=== PATIENT | male | born 1965 | race Caucasian/White ===

== ENCOUNTER 2016-11-03 12:43 | Emergency (ER) | payer OTHER ==
[2016-11-03] MEDS ORDERED: NAPROXEN 250 MG TAB As Ordered ONE (14:04)
--- NOTE | 2016-11-03 14:19 | REP ---
CT Head without contrast HISTORY: Trauma COMPARISON: None There is no intraparenchymal hemorrhage, acute infarct, mass or midline shift. The ventricular system is normal in appearance. There is no extra cerebral collection. There is no fracture. The visualized sinuses are clear. IMPRESSION: There is no intracranial lesion. Signed by Hilario Vasques MD 11/03/2016 02:11 P
--- NOTE | 2016-11-03 14:33 | EDDOCDS ---
Nurse's Notes [facility] Name: John Gibson Age: 51 yrs Sex: Male : 1965 Arrival Date: 11/03/2016 Time: 12:43 Bed PR Private MD: NO PRIMARY PHYSICIAN, . Diagnosis: Headache;Low back pain-chronic Presentation: 11/03 12:49 Presenting complaint: Patient states: headache for 6 days. today while at [employer] [facility] developed a nose bleed. also legs go numb when picks things up ( symptoms for 1 year). headache feels different today - I can actually feel the Headache move through my head. my neck crunches all the time - chronic. This patient has no additional risk factors. Adult Sepsis Screening: The patient does not have new or worsening altered mentation. Patient's respiratory rate is less than 22. Systolic blood pressure is greater than 100. Patient has a qSOFA score of 0- Negative Sepsis Screen. Suicide/Homicide risk assessment- the patient denies having any suicidal and/or homicidal ideations and does not present with any other emotional, behavioral or mental health complaints. Status: Patient is not a care services manager or dependent. Transition of care: patient was not received from another setting of care. 12:49 Acuity: LEAH Level 3 srm 12:49 Method Of Arrival: Walkin/Carried/Asstd srm Triage Assessment: 12:51 Headache History: A change in the character of the headache the patient is experiencing srm has occured. General: Appears in no apparent distress, Behavior is appropriate for age, cooperative. Pain: Pain currently is 6 out of 10 on a pain scale. Pain began 6 days ago Also complains of no other associated symptoms. HIV screening NA for this visit Offered previously. Neurological: Level of Consciousness is awake, Oriented to person, place, time, Gait is steady, Speech is normal. Historical: - Allergies: no known allergies; - Home Meds: 1. none - PMHx: headaches; back and neck pain; - PSHx: right lung surgery for a growth; - Social history: Smoking status: Patient states former smoker of tobacco. No barriers to communication noted, The patient speaks fluent Vincentian, Speaks appropriately for age. - Family history: Not pertinent. - : The pt / caregiver states he / she is not on anticoagulants. Home medication list is obtained from the patient. - Exposure Risk Screening:: None identified. Screenin:31 Screening information is obtained from the patient. Fall risk: No risks identified. kr3 Assistance ADL's: requires no assistance with activities of daily living. Abuse/DV Screen: The patient / caregiver reports he/she is: not in a situation that causes fear, pain or injury. Nutritional screening: No deficits noted. Advance Directives: Currently, there is no health care proxy. home support is adequate. Assessment: 14:32 Pain: Location: back. Neurological: Reports headache. Respiratory: Respiratory effort kr3 is even, unlabored. Vital Signs: 12:44 BP 112 / 78; Pulse 87; Resp 18; Temp 98.6(O); Pulse Ox 99% on R/A; Weight 52.16 kg (R); ct3 Height 5 ft. 7 in. (170.18 cm) (R); Pain 7/10; 14:28 BP 133 / 78; Pulse 64; Resp 18; Temp 99.3(TE); Pulse Ox 98% on R/A; Pain 7/10; ar3 12:44 Body Mass Index 18.01 (52.16 kg, 170.18 cm) ct3 Vitals: 12:44 Log In Time: November 03, 2016 at 12:41. ct3 ED Course: 12:43 Patient visited by Gracia Holley PCA. ct3 12:43 Patient moved to Waiting ct3 12:44 NO PRIMARY PHYSICIAN, . is Private Physician. ct3 12:46 Patient moved to Pre RCE ct3 12:50 Triage Initiated srm 13:24 Kacie Pastrana,RN is Primary Nurse. kr3 13:24 Delia Cabrales,CONNIE is Primary Nurse. kr3 13:24 Patient moved to Triage 1 kr3 13:50 [facility] cc10 13:50 Josh Cosme MD is Attending Physician. cc10 13:50 Patient visited by Anam Dey PA-C. cc10 13:50 Patient visited by Anam Dey PA-C. cc10 14:05 Patient moved to TR3 kr3 14:23 [facility] is Referral Physician. cc10 14:26 Patient moved to PR2 / 26 kr3 14:26 Patient moved to PR1 / 25 ar3 14:29 Patient visited by Denice Ortiz, JONAH. ar3 14:31 No IV's were initiated during this patient's visit. No procedures done that require kr3 assistance. 14:32 The patient / caregiver is instructed regarding the plan of care and ED course. Patient leticia has correct armband on for positive identification. Administered Medications: 14:05 Drug: Naproxen 500 mg [naproxen 250 mg tablet (2 tabs)] Route: PO; kr3 14:30 Follow up: Response: No significant change. kr3 Order Results: There are currently no results for this order. Outcome: 14:23 Discharge ordered by Provider. cc10 14:31 Discharge Assessment: patient administered narcotics - no. The following High Risk kr3 Discharge criteria are identified: None. Discharged to home ambulatory. Condition: stable. Discharge instructions given to patient, Instructed on discharge instructions, follow up and referral plans. medication usage, Demonstrated understanding of instructions, medications, Pt was receptive of discharge instructions/ teaching. Prescriptions given X 1. CT Study completed. Property sent home with patient. 14:32 Patient left the ED. kr3 Signatures: Cassie Rod, RN RN srm Delia CabralesRN CONNIE kr3 Denice Ortiz, PAPER MACHINE BACK TENDER PAPER MACHINE BACK TENDER ar3 Gracia Holley, PAPER MACHINE BACK TENDER PAPER MACHINE BACK TENDER ct3 Anam Dey PA-C PA-C cc10 MTDD
--- NOTE | 2016-11-03 14:33 | EDDOCDS ---
Physician Documentation [facility] Name: John Gibson Age: 51 yrs Sex: Male : 1965 Arrival Date: 11/03/2016 Time: 12:43 Bed PR Private MD: NO PRIMARY PHYSICIAN, . Disposition: 11/03/16 14:23 Discharged to Home/Self Care. Impression: Headache, Low back pain - chronic. - Condition is Stable. - Discharge Instructions: Chronic Back Pain, Sinus Headache, [id number]-Jyyp. - Prescriptions for Naprosyn 500 mg Oral Tablet - take 1 tablet by ORAL route 2 times per day take with food; 30 tablet. Prednisone 20 mg Oral Tablet - take 1 tablet by ORAL route once daily for 5 days; 5 tablet. - Medication Reconciliation form. - [facility]; When: Call to arrange an appointment; Reason: To establish care. - Problem is chronic. - Symptoms are unchanged. Historical: - Allergies: no known allergies; - Home Meds: 1. none - PMHx: headaches; back and neck pain; - PSHx: right lung surgery for a growth; - Social history: Smoking status: Patient states former smoker of tobacco. No barriers to communication noted, The patient speaks fluent Nicaraguan, Speaks appropriately for age. - Family history: Not pertinent. - : The pt / caregiver states he / she is not on anticoagulants. Home medication list is obtained from the patient. - Exposure Risk Screening:: None identified. Vital Signs: 11/03 12:44 BP 112 / 78; Pulse 87; Resp 18; Temp 98.6(O); Pulse Ox 99% on R/A; Weight 52.16 kg / ct3 114.99 lbs (R); Height 5 ft. 7 in. (170.18 cm) (R); Pain 7/10; 14:28 BP 133 / 78; Pulse 64; Resp 18; Temp 99.3(TE); Pulse Ox 98% on R/A; Pain 7/10; ar3 12:44 Body Mass Index 18.01 (52.16 kg, 170.18 cm) ct3 MDM: 14:01 Naproxen 500 mg PO once; administer with food or milk ordered. cc10 14:02 CT Head Without Contrast Ordered. EDMS Administered Medications: 14:05 Drug: Naproxen 500 mg [naproxen 250 mg tablet (2 tabs)] Route: PO; kr3 14:30 Follow up: Response: No significant change. kr3 Signatures: Dispatcher [employer] Cassie Ceballos RN Delia Cardona RN RN kr3 Anam Dey, MORENO PAAnthony cc10 MTDD
--- NOTE | 2016-11-05 15:33 | EDDOCDS ---
Nurse's Notes [facility] Name: John Gibson Age: 51 yrs Sex: Male : 1965 Arrival Date: 11/03/2016 Time: 12:43 Bed PR Private MD: NO PRIMARY PHYSICIAN, . Diagnosis: Headache;Low back pain-chronic Presentation: 11/03 12:49 Presenting complaint: Patient states: headache for 6 days. today while at [employer] [facility] developed a nose bleed. also legs go numb when picks things up ( symptoms for 1 year). headache feels different today - I can actually feel the Headache move through my head. my neck crunches all the time - chronic. This patient has no additional risk factors. Adult Sepsis Screening: The patient does not have new or worsening altered mentation. Patient's respiratory rate is less than 22. Systolic blood pressure is greater than 100. Patient has a qSOFA score of 0- Negative Sepsis Screen. Suicide/Homicide risk assessment- the patient denies having any suicidal and/or homicidal ideations and does not present with any other emotional, behavioral or mental health complaints. Status: Patient is not a rn patient services or dependent. Transition of care: patient was not received from another setting of care. 12:49 Acuity: LEAH Level 3 srm 12:49 Method Of Arrival: Walkin/Carried/Asstd srm Triage Assessment: 12:51 Headache History: A change in the character of the headache the patient is experiencing srm has occured. General: Appears in no apparent distress, Behavior is appropriate for age, cooperative. Pain: Pain currently is 6 out of 10 on a pain scale. Pain began 6 days ago Also complains of no other associated symptoms. HIV screening NA for this visit Offered previously. Neurological: Level of Consciousness is awake, Oriented to person, place, time, Gait is steady, Speech is normal. Historical: - Allergies: no known allergies; - Home Meds: 1. none - PMHx: headaches; back and neck pain; - PSHx: right lung surgery for a growth; - Social history: Smoking status: Patient states former smoker of tobacco. No barriers to communication noted, The patient speaks fluent Andorran, Speaks appropriately for age. - Family history: Not pertinent. - : The pt / caregiver states he / she is not on anticoagulants. Home medication list is obtained from the patient. - Exposure Risk Screening:: None identified. Screenin:31 Screening information is obtained from the patient. Fall risk: No risks identified. kr3 Assistance ADL's: requires no assistance with activities of daily living. Abuse/DV Screen: The patient / caregiver reports he/she is: not in a situation that causes fear, pain or injury. Nutritional screening: No deficits noted. Advance Directives: Currently, there is no health care proxy. home support is adequate. Assessment: 14:32 Pain: Location: back. Neurological: Reports headache. Respiratory: Respiratory effort kr3 is even, unlabored. Vital Signs: 12:44 BP 112 / 78; Pulse 87; Resp 18; Temp 98.6(O); Pulse Ox 99% on R/A; Weight 52.16 kg (R); ct3 Height 5 ft. 7 in. (170.18 cm) (R); Pain 7/10; 14:28 BP 133 / 78; Pulse 64; Resp 18; Temp 99.3(TE); Pulse Ox 98% on R/A; Pain 7/10; ar3 12:44 Body Mass Index 18.01 (52.16 kg, 170.18 cm) ct3 Vitals: 12:44 Log In Time: November 03, 2016 at 12:41. ct3 ED Course: 12:43 Patient visited by Gracia Holley PCA. ct3 12:43 Patient moved to Waiting ct3 12:44 NO PRIMARY PHYSICIAN, . is Private Physician. ct3 12:46 Patient moved to Pre RCE ct3 12:50 Triage Initiated srm 13:24 Kacie Pastrana,RN is Primary Nurse. kr3 13:24 Delia Cabrales,CONNIE is Primary Nurse. kr3 13:24 Patient moved to Triage 1 kr3 13:50 [facility] cc10 13:50 Josh Cosme MD is Attending Physician. cc10 13:50 Patient visited by Anam Dey PA-C. cc10 13:50 Patient visited by Anam Dey PA-C. cc10 14:05 Patient moved to TR3 kr3 14:23 [facility] is Referral Physician. cc10 14:26 Patient moved to PR2 / 26 kr3 14:26 Patient moved to PR1 / 25 ar3 14:29 Patient visited by Denice Ortiz PCA. ar3 14:31 No IV's were initiated during this patient's visit. No procedures done that require kr3 assistance. 14:32 The patient / caregiver is instructed regarding the plan of care and ED course. Patient leticia has correct armband on for positive identification. 14:34 [facility] Payment Agreement was scanned into [employer] and attached to record. jp5 14:37 CT Head Without Contrast Returned. EDMS 15:16 Patient name changed from John\S\\S\Arthur\S\ to John\S\Arturo\S\Arthur. EDMS 15:29 T-Sheet-- Draft Copy was scanned into [employer] and attached to record. gb Administered Medications: 14:05 Drug: Naproxen 500 mg [naproxen 250 mg tablet (2 tabs)] Route: PO; kr3 14:30 Follow up: Response: No significant change. kr3 Order Results: Radiology Order: CT Head Without Contrast Test: CT Head Without Contrast REASON FOR EXAMINATION: Trauma; CT Head without contrast; ; HISTORY: Trauma; ; COMPARISON: None; ; There is no intraparenchymal hemorrhage, acute infarct, mass or midline shift.; The ventricular system is normal in appearance. There is no extra cerebral; collection. There is no fracture. The visualized sinuses are clear.; ; IMPRESSION: There is no intracranial lesion.; ; ; ; ; Signed by; Hilario Vasques MD 11/03/2016 02:11 P; Outcome: 14:23 Discharge ordered by Provider. cc10 14:31 Discharge Assessment: patient administered narcotics - no. The following High Risk kr3 Discharge criteria are identified: None. Discharged to home ambulatory. Condition: stable. Discharge instructions given to patient, Instructed on discharge instructions, follow up and referral plans. medication usage, Demonstrated understanding of instructions, medications, Pt was receptive of discharge instructions/ teaching. Prescriptions given X 1. CT Study completed. Property sent home with patient. 14:32 Patient left the ED. kr3 Signatures: Dispatcher [employer] EDMS Cassie Rod RN RN [facility] Tovat, Taniya, Reg Reg Delia Cabrales RN RN kr3 Denice Ortiz, AGRICULTURAL LENDER AGRICULTURAL LENDER ar3 Gracia Holley, AGRICULTURAL LENDER AGRICULTURAL LENDER ct3 [place], Anam, PA-C PA-C cc10 Vee Pagan jp5 Chart Complete MTDD
--- NOTE | 2016-11-05 15:33 | EDDOCDS ---
Physician Documentation [facility] Name: John Gibson Age: 51 yrs Sex: Male : 1965 Arrival Date: 11/03/2016 Time: 12:43 Bed PR Private MD: NO PRIMARY PHYSICIAN, . Disposition: 11/03/16 14:23 Discharged to Home/Self Care. Impression: Headache, Low back pain - chronic. - Condition is Stable. - Discharge Instructions: Chronic Back Pain, Sinus Headache, [id number]. - Prescriptions for Naprosyn 500 mg Oral Tablet - take 1 tablet by ORAL route 2 times per day take with food; 30 tablet. Prednisone 20 mg Oral Tablet - take 1 tablet by ORAL route once daily for 5 days; 5 tablet. - Medication Reconciliation form. - Follow up: [facility]; When: Call to arrange an appointment; Reason: To establish care. - Problem is chronic. - Symptoms are unchanged. Historical: - Allergies: no known allergies; - Home Meds: 1. none - PMHx: headaches; back and neck pain; - PSHx: right lung surgery for a growth; - Social history: Smoking status: Patient states former smoker of tobacco. No barriers to communication noted, The patient speaks fluent Chilean, Speaks appropriately for age. - Family history: Not pertinent. - : The pt / caregiver states he / she is not on anticoagulants. Home medication list is obtained from the patient. - Exposure Risk Screening:: None identified. Vital Signs: 11/03 12:44 BP 112 / 78; Pulse 87; Resp 18; Temp 98.6(O); Pulse Ox 99% on R/A; Weight 52.16 kg / ct3 114.99 lbs (R); Height 5 ft. 7 in. (170.18 cm) (R); Pain 7/10; 14:28 BP 133 / 78; Pulse 64; Resp 18; Temp 99.3(TE); Pulse Ox 98% on R/A; Pain 7/10; ar3 12:44 Body Mass Index 18.01 (52.16 kg, 170.18 cm) ct3 MDM: 14:01 Naproxen 500 mg PO once; administer with food or milk ordered. cc10 14:02 CT Head Without Contrast Ordered. EDMS 14:34 [facility] Payment Agreement was scanned into [employer] and attached to record. jp5 14:34 Financial registration complete. jp5 15:29 T-Sheet-- Draft Copy was scanned into [employer] and attached to record. gb Administered Medications: 14:05 Drug: Naproxen 500 mg [naproxen 250 mg tablet (2 tabs)] Route: PO; kr3 14:30 Follow up: Response: No significant change. kr3 Signatures: Dispatcher [employer] EDMS Cassie Rod, RN RN srm Taniya Murillo, Reg Reg gb Delia Cabrales RN RN kr3 Anam Dey, PA-C PA-C cc10 Vee Pagan jp5 The chart was reviewed and I authenticate all verbal orders and agree with the evaluation and treatment provided.Attachments: 14:34 [facility] Payment Agreement jp5 15:29 T-Sheet-- Draft Copy gb Chart Complete MTDD
--- NOTE | 2016-11-05 15:33 | EDDOCDS ---
Physician Documentation [facility] Name: John Gibson Age: 51 yrs Sex: Male : 1965 Arrival Date: 11/03/2016 Time: 12:43 Bed PR Private MD: NO PRIMARY PHYSICIAN, . Disposition: 11/03/16 14:23 Discharged to Home/Self Care. Impression: Headache, Low back pain - chronic. - Condition is Stable. - Discharge Instructions: Chronic Back Pain, Sinus Headache, [id number]. - Prescriptions for Naprosyn 500 mg Oral Tablet - take 1 tablet by ORAL route 2 times per day take with food; 30 tablet. Prednisone 20 mg Oral Tablet - take 1 tablet by ORAL route once daily for 5 days; 5 tablet. - Medication Reconciliation form. - Follow up: [facility]; When: Call to arrange an appointment; Reason: To establish care. - Problem is chronic. - Symptoms are unchanged. Historical: - Allergies: no known allergies; - Home Meds: 1. none - PMHx: headaches; back and neck pain; - PSHx: right lung surgery for a growth; - Social history: Smoking status: Patient states former smoker of tobacco. No barriers to communication noted, The patient speaks fluent Cypriot, Speaks appropriately for age. - Family history: Not pertinent. - : The pt / caregiver states he / she is not on anticoagulants. Home medication list is obtained from the patient. - Exposure Risk Screening:: None identified. Vital Signs: 11/03 12:44 BP 112 / 78; Pulse 87; Resp 18; Temp 98.6(O); Pulse Ox 99% on R/A; Weight 52.16 kg / ct3 114.99 lbs (R); Height 5 ft. 7 in. (170.18 cm) (R); Pain 7/10; 14:28 BP 133 / 78; Pulse 64; Resp 18; Temp 99.3(TE); Pulse Ox 98% on R/A; Pain 7/10; ar3 12:44 Body Mass Index 18.01 (52.16 kg, 170.18 cm) ct3 MDM: 14:01 Naproxen 500 mg PO once; administer with food or milk ordered. cc10 14:02 CT Head Without Contrast Ordered. EDMS 14:34 [facility] Payment Agreement was scanned into [employer] and attached to record. jp5 14:34 Financial registration complete. jp5 15:29 T-Sheet-- Draft Copy was scanned into [employer] and attached to record. gb Administered Medications: 14:05 Drug: Naproxen 500 mg [naproxen 250 mg tablet (2 tabs)] Route: PO; kr3 14:30 Follow up: Response: No significant change. kr3 Signatures: Dispatcher [employer] EDMS Cassie Rod, RN RN srm Taniya Murillo, Reg Reg gb Delia Cabrales RN RN kr3 Anam Dey, PA-C PA-C cc10 Vee Pagan jp5 The chart was reviewed and I authenticate all verbal orders and agree with the evaluation and treatment provided.Attachments: 14:34 [facility] Payment Agreement jp5 15:29 T-Sheet-- Draft Copy gb Chart Complete MTDD
== END 2016-11-03 14:32 | disposition home or self-care (01) ==
LOC: M ED 12:43
DX: R51 Headache (principal); G89.29 Other chronic pain; M54.2 Cervicalgia; F17.210 Nicotine dependence, cigarettes, uncomplicated

== ENCOUNTER → 2016-11-30 | Outpatient (REF) | payer OTHER ==
[2016-11-30 19:22] LABS: FOLATE 23.6 NG/ML; VITAMIN B12 LEVEL 670 PG/ML
[2016-11-30 19:31] LABS: ALBUMIN 3.8 GM/DL (3.2-5.2); ALBUMIN/GLOBULIN RATIO 1.31 (1.00-1.93); ALKALINE PHOSPHATASE 88 U/L (45-117); ALT/SGPT 17 U/L (12-78); ANION GAP 12 MEQ/L (8-16); AST/SGOT 18 U/L (15-37); BILIRUBIN,TOTAL 0.3 MG/DL (0.2-1.0); BLOOD UREA NITROGEN 16 MG/DL (7-18); CARBON DIOXIDE LEVEL 23 MEQ/L (21-32); CHLORIDE LEVEL 110 MEQ/L (98-107); CHOLESTEROL LEVEL 174 MG/DL (<200); FREE T4 0.84 NG/DL (0.76-1.46); GLOMERULAR FILTRATION RATE > 60.0 (>56); GLUCOSE, FASTING 110 MG/DL (70-105); POTASSIUM SERUM 4.4 MEQ/L (3.5-5.1); SODIUM LEVEL 145 MEQ/L (136-145); TOTAL PROTEIN 6.7 GM/DL (6.4-8.2); TRIGLYCERIDES LEVEL 162 MG/DL (<150)
[2016-11-30 20:04] LABS: WHITE BLOOD COUNT 10.2 K/mm3 (4.0-10.0)
[2016-11-30 20:05] LABS: BASO % 0.4 % (0.0-1.0); EOS # 0.3 K/mm3 (0.0-0.50); EOS % 3.1 % (0.0-3.0); LARGE UNSTAINED CELL # 0.2 K/mm3 (0.0-0.4); LYMPH # 2.4 K/mm3 (1.5-4.5); LYMPH % 23.1 % (24.0-44.0); MEAN CORPUSCULAR HEMOGLOBIN 31.7 pg (27.0-33.0); MEAN CORPUSCULAR HGB CONC 33.8 g/dl (32.0-36.5); MEAN CORPUSCULAR VOLUME 93.9 fl (80.0-96.0); MONO # 0.7 K/mm3 (0.0-0.8); MONO % 6.5 % (0.0-5.0); NEUTROPHILS # 6.6 K/mm3 (1.8-7.7); NEUTROPHILS % 64.9 % (36.0-66.0); PLATELET COUNT, AUTOMATED 390 k/mm3 (150-450); RED CELL DISTRIBUTION WIDTH 12.4 % (11.5-14.5)
[2016-12-01 14:13] LABS: HIV SCRN NEGATIVE (NEGATIVE); HIV SCRN1 NEGATIVE (NEGATIVE)
[2016-12-01 14:14] LABS: CONTROL LINE INT CTR LINE PRESENT
== END ==
LOC: M SFHCCAPE 10:38
PROVIDERS: ATTEND Physician Assistant
DX: R06.02 Shortness of breath (principal); F32.0 Major depressive disorder, single episode, mild; Z11.59 Encounter for screening for other viral diseases; Z13.6 Encounter for screening for cardiovascular disorders; Z11.4 Encounter for screening for human immunodeficiency virus [HIV]; R07.9 Chest pain, unspecified; Z12.5 Encounter for screening for malignant neoplasm of prostate
CPT/HCPCS: 80053; 80061; 82306; 82607; 82746; 84439; 84443; 85025; 86803; 87806; G0103

== ENCOUNTER → 2016-12-03 | Outpatient (CLI) | payer OTHER ==
--- NOTE | 2016-12-03 19:40 | REP ---
CHEST, TWO VIEWS: HISTORY: Dyspnea. COMPARISON: 08/19/2014 The heart is not enlarged. There are chronic changes seen throughout the lung carmen, status quo. The lung carmen are hyperexpanded. No acute patchy parenchymal opacities or pleural effusions have developed. IMPRESSION: No plain radiographic evidence of acute disease or significant change from the prior exam. Signed by Addy Pineda DO 12/04/2016 11:44 A
== END ==
LOC: M RAD 18:47
PROVIDERS: ATTEND Physician Assistant
DX: R06.02 Shortness of breath (principal)

== ENCOUNTER → 2016-12-19 | Outpatient (CLI) | payer OTHER ==
--- NOTE | 2016-12-21 09:07 | REP ---
MR CERVICAL SPINE WITHOUT CONTRAST: HISTORY: Degenerative disc disease. COMPARISON: 04/19/2014. A disc bulge with associated osteophyte formation is present at the C5-6 level. There is mild effacement of the thecal sac without spinal cord compression. Bilateral uncinate process hypertrophy is present. This produces moderate and mild narrowing of the right and the left C5 neural foramina respectively . A disc bulge with associated osteophyte formation is present at the C6-7 level. There is minimal effacement of the thecal sac without spinal cord compression. Bilateral uncinate process hypertrophy is present. This produces moderate and mild narrowing the right and left C6 neural foramina respectively . There is no other disc bulge or herniation. The remaining neural foramina are patent. The spinal cord is normal in signal intensity. The C4-5 through C6-7 intervertebral discs are decreased in height consistent with disc degeneration. Normal signal intensity is present in the cervical vertebral bodies. IMPRESSION: There is cervical spondylosis at the C5-6 and C6-7 levels without spinal cord compression. There has been progression of the foraminal narrowing. Signed by Hilario Vasques MD 12/21/2016 09:19 A
--- NOTE | 2016-12-21 09:38 | REP ---
MR LUMBAR SPINE WITHOUT CONTRAST: HISTORY: Degenerative disc disease. COMPARISON: 04/19/2014. Decreased signal intensity on T2-weighted images is present in the L2-3 through L5-S1 intervertebral discs. The discs are decreased in height. These findings are consistent with disc degeneration. A disc bulge is present at the T12-L1 level. There is minimal effacement of the thecal sac without spinal cord compression. The T12 neural foramina are patient on sagittal images. A diffuse disc bulge is present at the L1-2 level. There is minimal compression o of the thecal sac. The L1 nerves exit the neural foramina without compression. A diffuse disc bulge and small right paracentral disc protrusion are present at the L2-3 level. There is hypertrophy of the ligamenta flava and posterior articulating facets. These findings produce minimal central canal stenosis. The L2 nerves exit the neural foramina without compression. A diffuse disc bulge is present at the L3-4 level. There is minimal compression of the thecal sac. There is hypertrophy of the posterior articulating facets. The L3 nerves exit the neural foramina without compression. A diffuse disc bulge and small disc extrusion central and eccentric to the left are present at the L4-5 level. There is inferior migration of disc material. There is minimal compression of the thecal sac and left L5 nerve as it exits the thecal sac and in the left L5 lateral recess. There is compression of the right L4 nerve in the neural foramen. The left L4 nerve exits the neural foramen without compression. A diffuse disc bulge is present in at the L5-S1 level. There is no thecal sac compression. The disc bulge abuts the S1 nerves. There is hypertrophy of the posterior articulating facets. The L5 nerve exits the neural foramina without compression. There is partial sacralization of the L5 vertebral body. The conus medullaris is normal in appearance terminating at the level of the T12-L1 intervertebral disc. Increased signal intensity on T2-weighted images is present in the endplates of the L2 through L4 vertebral bodies. This represents degenerative. IMPRESSION: 1. Diffuse disc bulge at the L1-2 level with minimal thecal sac compression. The disc bulge is a new finding. 2. Minimal central canal stenosis at the L2-3 level secondary to disc bulge, disc protrusion, ligamentous and facet hypertrophy. The disc protrusion is a new findings. 3. Diffuse disc bulge at the L3-4 level with minimal thecal sac compression. 4. Diffuse disc bulge and small disc extrusion at the L4-5 level with minimal compression of the thecal sac and left L5 nerve as it exits the thecal sac and in the left L5 lateral recess. 5. Diffuse disc bulge at the L5-S1 level. This abuts the S1 nerves. The disc bulge is a new finding. Signed by Hilario Vasques MD 12/21/2016 09:49 A
== END ==
LOC: M RAD 08:57
PROVIDERS: ATTEND Physician Assistant
DX: M54.5 Low back pain (principal)

== ENCOUNTER → 2017-01-22 | Outpatient (CLI) | payer OTHER ==
--- NOTE | 2017-02-03 00:38 | ECWPNPC ---
PATIENT NAME: YAMILA MAHARAJ : 1965 GENDER: MALE VISIT DATE: 01/22/2017 DISCHARGE DATE: 01/22/17 1451 VISIT LOCKED DATE TIME: PHYSICIAN: KELTON WU RESOURCE: KELTON WU REASON FOR APPOINTMENT 1. NECK/BACK HISTORY OF PRESENT ILLNESS NEW PATIENT CONSULT: WHEN DID YOUR PAIN FIRST START? . BRIEFLY DESCRIBE HOW YOUR PAIN STARTED? . HOW DOES YOUR PAIN CHANGE WITH TIME? . DOES YOUR PAIN AWAKEN YOU FROM SLEEP? . HOW MANY HOURS OF SLEEP DO YOU NORMALLY GET? . ANY DIAGNOSTIC TESTING? . FACILITY WHERE TESTS WERE DONE? ____. PAIN TREATMENT TREATMENT YES CANCER HAVE YOU EVER HAD ANY TYPE OF CANCER?NO NO. 51 YEAR OLD MALE PATIENT WITH HISTORY OF CHRONIC NECK AND BACK PAIN. PATIENT DESCRIBES THE PAIN ACHING, STABBING, AND HAVING IT ALL THE TIME WITH A PAIN SCORE OF 6/10 ON TODAY'S VISIT. PATIENT REPORTS THAT HIS PAIN STARTED 25 YEARS AGO WHEN A BOX OF ALUMINUM FELL ON HIM. PATIENT REPORTS THAT HE SUFFERS FROM DEPRESSION. PATIENT STATES THAT ANY MOVEMENT OF THE NECK HURTS. PATIENT REPORTS THAT HIS RIGHT LEG GOES NUMB. PATIENT REPORTS THAT HE IS NOT INTERESTED IN INJECTIONS AT THIS TIME. PATIENT REPORTS THAT HE HAS SEEN SOMEONE IN THE ORTHOPEDIC GROUP AND THEY CAN DO NOTHING FOR HIM. PATIENT DENIES UNEXPLAINABLE WEIGHT LOSS, FEVER, CHILLS, NEW CHANGES ON HIS URINARY OR BOWEL CONTROL. PAIN SCREENING: PATIENT HAS A COMPLAINT OF ACUTE OR CHRONIC PAIN :YES FALL RISK SCREENING: SCREENING :NO FALLS IN THE PAST YEAR BANKS INVENTORY: QUESTIONNAIRE ASSESSEDTBD SCORE VALUE CALCULATED TBD CURRENT MEDICATIONS NOT-TAKING MULTI FOR HIM - TABLET 1 TAB ORALLY DAILY NOT-TAKING LORATADINE 10 MG TABLET 1 TABLET ORALLY ONCE A DAY NOT-TAKING BENZONATATE 100 MG CAPSULE 1 CAPSULE NEEDED ORALLY THREE TIMES A DAY NOT-TAKING MUCINEX 600 MG TABLET EXTENDED RELEASE 12 HOUR 1 TABLET NEEDED ORALLY EVERY 12 HRS NOT-TAKING MELOXICAM 15 MG TABLET 1 TABLET ORALLY ONCE A DAY MEDICATION LIST REVIEWED AND RECONCILED WITH THE PATIENT PAST MEDICAL HISTORY MIGRAINE HEADACHE LOW BACK PAIN NECK PAIN ?HISTORY OF DRUG ADDICTION 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 SURGICAL HISTORY LUNG SURGERY ([facility] BLEB) - [facility] [address] BONDS 10/08/14 CYTOSCOPY-UROLOGY 10/17/14 FAMILY HISTORY FATHER: ALIVE 82 YRS, BLADDER CANCER, DIAGNOSED WITH CANCER MOTHER: 68 YRS, COLON CANCER, TIA, DIABETES, DIAGNOSED WITH CANCER SIBLINGS: ALIVE 49,53 YRS SON(S): 2 SONS HEROIN ADDICTION 2 BROTHER(S) , 1 SISTER(S) - HEALTHY. 3 SON(S) , 1 DAUGHTER(S) . FATHER BLADDER CA, MOTHER PANCREATIC CA,. SOCIAL HISTORY GENERAL: TOBACCO USE ARE YOU A:FORMER SMOKER HOW LONG HAS IT BEEN SINCE YOU LAST SMOKED?1-3 MONTHS SMOKING CESSATION INFORMATION GIVEN01/22/2017 ALCOHOL SCREENING POINTS0 INTERPRETATIONNEGATIVE JUDAISM JUDAISM NO PREFERENCE LEARNING BARRIERS / SPECIAL NEEDS BARRIERS TO LEARNING?YES HEARING IMPAIRED?NO VISION IMPAIRED?YES :CORRECTIVE LENSES COGNITIVELY IMPAIRED?NO READINESS TO LEARN?YES LEARNING PREFERENCES?NO LEARNING CAPABILITIES PRESENT?YES EMOTIONAL BARRIERS?NO SPECIAL DEVICES?NO ORDER ENTRY REPRESENTATIVE NEEDED?NO PAIN CLINIC PFS, CLERGY, PUBLIC HEALTH REFERRALS CLERGY REFERRAL NEEDED?NO WAS THE PROVIDER NOTIFIED OF ANY PERTINENT INFO?NO PFS REFERRAL NEEDED?NO PUBLIC HEALTH REFERRAL NEEDED?NO PATIENT: ____. ADVANCED DIRECTIVES HEALTH CARE PROXY?NO WOULD YOU LIKE MORE INFORMATION?NO DO YOU HAVE A DNR?NO WOULD YOU LIKE MORE INFORMATION?NO LIVING WILL?NO WOULD YOU LIKE MORE INFORMATION?NO POWER OF CERTIFIED ALCOHOL AND DRUG COUNSELOR?NO WOULD YOU LIKE MORE INFORMATION?NO HOSPITALIZATION/MAJOR DIAGNOSTIC PROCEDURE SEE SURGERY ABOVE REVIEW OF SYSTEMS CONSTITUTIONAL: ANY CHANGE IN YOUR MEDICAL CONDITION? NO . CHILLS NO . FEVER NO . INFECTION: DO YOU HAVE NEW INFECTIONS? NO . DO YOU HAVE HISTORY OF MRSA? NO . MUSCULOSKELETAL: ANY NEW PATTERNS OF PAIN OR NUMBNESS? NO . SYTEMIC LUPUS NO . GASTROENTEROLOGY: ANY NEW CHANGE IN BOWEL CONTROL? NO . BARRETTS ESOPHAGUS NO . CIRRHOSIS NO . HEPATITIS NO . LIVER FAILURE NO . ACID REFLUX NO . UNEXPLAINED WEIGHT LOSS NO . GENITOURINARY: ANY NEW CHANGE IN BLADDER CONTROL? NO . IS THERE A CHANCE YOU COULD BE ? NO . HEMATOLOGY/LYMPH: DO YOU TAKE ANY BLOOD THINNERS? (FOR EXAMPLE- COUMADIN, PLAVIX, AGGRENOX, PLATEL, PRADAXA, OR XARELTO) NO . WHEN WAS YOUR LAST DOSE? DATE: TIME: . LOW PLATELET COUNT NO . SICKLE CELL DISEASE NO . VON WILLIEBRANDS NO . FACTOR V LEIDEN NO . THALLASEMIA NO . ANEMIA NO . EASY BRUISING NO . NEUROLOGY: HAVE YOU FALLEN IN THE PAST 6 MONTHS? NO . ANY NEW EXTREMITY NUMBNESS OR WEAKNESS? NO . HEAD INJURY NO . DEMENTIA NO . CEREBRAL PALSY NO . MULTIPLE SCLEROSIS NO . DIZZINESS NO . HEADACHE NO . STROKES NO . VERTIGO NO . CARDIOLOGY: DO YOU HAVE A PACEMAKER OR DEFIBRILLATOR? NO . ANGINA NO . HEART ATTACK NO . HEART SURGERY NO . CONGESTIVE HEART FAILURE/FLUID OVERLOAD NO . CHEST PAIN NO . HIGH BLOOD PRESSURE NO . IRREGULAR HEART BEAT NO . RESPIRATORY: HAVE YOU BEEN SICK IN THE PAST WEEK? NO . FEVER NO . FLU LIKE SYMPTOMS? NO . CPAP NO . BYPAP NO . ASTHMA NO . EMPHYSEMA NO . CHRONIC LUNG DISEASES NO . SHORTNESS OF BREATH ON EXERTION NO . DO YOU USE ANY TYPE OF TOBACCO (SMOKE, SMOKELESS, CHEW)? NO . COUGH YES . SNORING NO . INTEGUMENTARY: DO YOU HAVE ANY RASHES OR OPEN SORES? NO . ALLERGIC/IMMUNO: ARE YOU ALLERGIC TO SHELLFISH OR IV DYE? NO . ANY NEW ALLERGIES? NO . PSYCHIATRIC: DO YOU HAVE THOUGHTS OF HURTING YOURSELF OR SOMEONE ELSE? NO . ARE YOU ABUSED, NEGLECTED, OR IN AN UNSAFE ENVIRONMENT? NO . ENDOCRINOLOGY: ARE YOU DIABETIC? NO . THYROID DISORDER NO . OTHER: DO YOU NEED ANY PRESCRIPTIONS? NO . IF YES, PLEASE LIST: ____ . ANY NEW PROBLEMS WITH YOUR MEDICATIONS? NO . WHEN DID YOU LAST EAT? ____ . WHEN DID YOU LAST DRINK? ____ . WHAT DID YOU LAST DRINK? ____ . NAME OF PERSON DRIVING YOU HOME? ____ . DO YOU HAVE ANY OTHER QUESTIONS OR CONCERNS NO . REVIEWED BY: PROVIDER: KELTON WU MD . VITAL SIGNS WT 119.4 LBS, HT 5'61/2", BMI 18.98 INDEX, BP 124/74 MM HG, HR 67 /MIN, RR 18 /MIN, TEMP 98.0 F, OXYGEN SAT % 95%, NA INITIALS AW 1328, REVIEWED BY: LS. EXAMINATION : PATIENT IS ALERT O X 3 AND COOPERATIVE. PATIENT'S RIGHT HAND VENUE ATTENDANT IS WEAKER COMPARED TO THE LEFT. HIS RIGHT ARM IS WEAKER AT FLEXION AND EXTENSION. EXTENSION AND FLEXION OF THE NECK INCREASES HIS PAIN WELL LATERAL MOVEMENT TO THE RIGHT AND LEFT. THERE IS TENDERNESS IN THE CERVICAL PARASPINAL MUSCLE GROUP WITH BANDS OF TISSUES, RESTRICTION OF MOVEMENT, AND PRESENCE OF TRIGGER POINTS. THERE IS SEVERE TENDERNESS IN THE BACK PARASPINAL MUSCLE GROUP. PATIENT RIGHT LEG IS WEAKER AT FLEXION AND EXTENSION. MRI OF THE LUMBAR SPINE DONE ON 12/19/2016 SHOWS DISC BULGES, STENOSIS, FACET ARTHROPATHY, AND A DISC EXTRUSION AT MULTIPLE LEVELS. MRI OF THE CERVICAL SPINE DONE ON 12/19/2016 SHOWS FACET ARTHROPATHY CHANGES AT MULTIPLE LEVELS. ASSESSMENTS INTERVERTEBRAL DISC DISORDERS WITH RADICULOPATHY, LUMBAR REGION - M51.16 (PRIMARY) INTERVERTEBRAL DISC DISORDERS WITH RADICULOPATHY, LUMBOSACRAL REGION - M51.17 SPONDYLOSIS WITHOUT MYELOPATHY OR RADICULOPATHY, LUMBAR REGION - M47.816 SPONDYLOSIS WITHOUT MYELOPATHY OR RADICULOPATHY, LUMBOSACRAL REGION - M47.817 TREATMENT INTERVERTEBRAL DISC DISORDERS WITH RADICULOPATHY, LUMBAR REGION NOTES: WE DISCUSSED SEVERAL ISSUES WITH MR. MAHARAJ'S PAIN MANAGEMENT CASE. AT THIS TIME I WILL HAVE THE PATIENT START ON TIZANIDINE FOR MUSCLE SPASTICITY AND TIGHTNESS IN THE BACK. I DISCUSSED WITH THE PATIENT THAT I WILL REFER HIM TO [facility] FOR A SURGICAL CONSULT DUE TO THE DISC EXTRUSION. PATIENT WILL FOLLOW UP WITH A NURSE PRACTITIONER IN 2 WEEKS. , INSTRUCTIONS WERE GIVEN, QUESTIONS WERE ANSWERED, PATIENT REPORTS UNDERSTANDING AND AGREES WITH THE PLAN. I, PRANAY SNYDER, DOCUMENTED THE ABOVE INFORMATION ACTING A SCRIBE FOR DR. WU. I HAVE REVIEWED THE ABOVE DOCUMENT, WRITTEN BY PRANAY NORTHIBArgelia AND I VERIFY THAT IT IS ACCURATE. , DR. WINSTON-THANK YOU FOR YOUR KIND REFERRAL OF MR. MAHARAJ. IF YOU WOULD LIKE TO DISCUSS HIS CASE WITH ME, PLEASE CALL ME AT THE PAIN CENTER AT [phone]. OTHERS START TIZANIDINE HCL TABLET, 2 MG, 1 TABLET NEEDED, ORALLY, BEFORE BEDTIME MAY REPEAT IN 4 HRS MDD2, 30 DAY(S), 50, REFILLS 1 PROCEDURE CODES FA211 ESTABILISHED PATIENT [facility] FACILITY CHARGE D1610 PAIN ASSESS POS TOOL F/U PLAN DOC G8427 DOC MEDS VERIFIED W/PT OR RE DISPOSITION & COMMUNICATION FOLLOW UP 2 WEEKS ELECTRONICALLY SIGNED BY KELTON WU MD ON 02/02/2017 AT 06:52 PM EDT DISCLAIMER : THIS IS A VISIT SUMMARY EXTRACTED FROM THE [employer] CHART. IT IS NOT A COPY OF THE [employer] PROGRESS NOTE. CHARLIE
== END ==
LOC: M PAIN 13:00
PROVIDERS: ATTEND Anesthesiology
DX: G89.29 Other chronic pain (principal); M51.16 Intervertebral disc disorders with radiculopathy, lumbar region; M51.17 Intervertebral disc disorders with radiculopathy, lumbosacral region; M47.816 Spondylosis without myelopathy or radiculopathy, lumbar region; M47.817 Spondylosis without myelopathy or radiculopathy, lumbosacral region; G43.909 Migraine, unspecified, not intractable, without status migrainosus; J43.9 Emphysema, unspecified; F32.9 Major depressive disorder, single episode, unspecified; F41.9 Anxiety disorder, unspecified; Z79.899 Other long term (current) drug therapy; Z87.898 Personal history of other specified conditions; Z87.891 Personal history of nicotine dependence

== ENCOUNTER → 2017-02-04 | Outpatient (CLI) | payer OTHER ==
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
== END ==
LOC: M PAIN 15:00
PROVIDERS: ATTEND Nurse Practitioner Family
DX: G89.29 Other chronic pain (principal); M51.16 Intervertebral disc disorders with radiculopathy, lumbar region; M51.17 Intervertebral disc disorders with radiculopathy, lumbosacral region; M47.816 Spondylosis without myelopathy or radiculopathy, lumbar region; M47.817 Spondylosis without myelopathy or radiculopathy, lumbosacral region; G43.909 Migraine, unspecified, not intractable, without status migrainosus; M43.12 Spondylolisthesis, cervical region; F32.9 Major depressive disorder, single episode, unspecified; F41.9 Anxiety disorder, unspecified; J43.9 Emphysema, unspecified; Z79.899 Other long term (current) drug therapy

== ENCOUNTER 2017-03-31 14:56 | Emergency (ER) | payer OTHER ==
[2017-03-31 15:47] LABS: MEAN CORPUSCULAR HGB CONC 36.4 g/dl (32.0-36.5); MEAN CORPUSCULAR VOLUME 93.5 fl (80.0-96.0); RED CELL DISTRIBUTION WIDTH 12.6 % (11.5-14.5); WHITE BLOOD COUNT 10.4 K/mm3 (4.0-10.0)
[2017-03-31 16:19] LABS: ALBUMIN 4.2 GM/DL (3.2-5.2); ALKALINE PHOSPHATASE 91 U/L (45-117); ALT/SGPT 29 U/L (12-78); ANION GAP 7 MEQ/L (8-16); AST/SGOT 21 U/L (15-37); BILIRUBIN,DIRECT < 0.1 MG/DL (0.0-0.2); BILIRUBIN,TOTAL 0.3 MG/DL (0.2-1.0); BLOOD UREA NITROGEN 15 MG/DL (7-18); CARBON DIOXIDE LEVEL 26 MEQ/L (21-32); CHLORIDE LEVEL 109 MEQ/L (98-107); CREATININE FOR GFR 0.98 MG/DL (0.70-1.30); GLOMERULAR FILTRATION RATE > 60.0 (>56); GLUCOSE, FASTING 111 MG/DL (70-105); POTASSIUM SERUM 4.3 MEQ/L (3.5-5.1); SODIUM LEVEL 142 MEQ/L (136-145); TOTAL PROTEIN 7.7 GM/DL (6.4-8.2)
[2017-03-31 16:41] LABS: METHADONE URINE NEGATIVE (NEGATIVE)
[2017-03-31 19:23] VITALS: BP 126/74
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
== END 2017-03-31 19:24 | disposition home or self-care (01) ==
LOC: M ED 14:56
DX: F32.9 Major depressive disorder, single episode, unspecified (principal); F41.9 Anxiety disorder, unspecified; F43.10 Post-traumatic stress disorder, unspecified; J43.9 Emphysema, unspecified; G43.909 Migraine, unspecified, not intractable, without status migrainosus; M54.5 Low back pain; F17.200 Nicotine dependence, unspecified, uncomplicated

== ENCOUNTER → 2017-04-09 | Outpatient (CLI) | payer OTHER ==
--- NOTE | 2017-04-12 02:03 | REP ---
Clinical: Shortness of breath. Comparison: 11/21/2010. Findings: Moderate biapical scarring along with mild/moderate chronic COPD and emphysematous changes primarily involving the upper lung zones is again appreciated and essentially stable. No acute pulmonary parenchymal consolidation, nodule or mass lesion appreciated. No pleural effusion or pneumothorax. Tracheobronchial tree demonstrates a mild chronic bronchiectasis are remains patent. Mediastinum is within normal limits and demonstrates scattered atheromatous changes involving the thoracic aorta and coronary arteries. No cardiomegaly or pericardial effusion is appreciated. No obvious adenopathy identified. Surrounding musculoskeletal structures are intact. Limited upper abdomen demonstrates 5 mm nonobstructing right renal calculus and renal hypodensities likely representing cysts. Impression: 1. Chronic biapical scarring and mild/moderate chronic COPD and emphysematous changes similar to prior examination. 2. No acute mediastinal or pleuroparenchymal process. 3. 5 mm nonobstructing right renal calculus and suspected renal cysts may be followed by ultrasound if necessary. Signed by Geoffrey Dai MD 04/12/2017 01:55 A
== END ==
LOC: M RAD 17:37
PROVIDERS: ATTEND Internal Medicine Pulmonary Disease
DX: J43.9 Emphysema, unspecified (principal); N20.0 Calculus of kidney

== ENCOUNTER → 2017-04-26 | Outpatient (CLI) | payer OTHER ==
--- NOTE | 2017-04-26 12:30 | REP ---
RENAL AND BLADDER ULTRASOUND: Real-time sonographic evaluation of the kidneys performed. The kidneys are normal in size and echotexture, right kidney measuring 9.8 x 4.4 x 3.7 cm and left kidney 10.5 x 4.2 x 6.2 cm. There is no hydronephrosis bilaterally. There appears to be a 7 mm calculus in the upper right kidney. Two cysts are seen in the upper right kidney measuring 1.4 x 0.8 x 0.9 cm and 0.9 x 0.9 x 0.4 cm. Possible 3 mm calculus is seen in the lower pole of the left kidney. Urinary bladder is mild to moderately distended with no definite mass or calculus. Ureteral jets are seen in the urinary bladder bilaterally with Doppler color evaluation. IMPRESSION: No hydronephrosis. There appears to be a 7 mm calculus in the upper right kidney with a possible 3 mm calculus lower pole left kidney. Two cysts upper right kidney. Signed by John Larkin MD 04/27/2017 08:39 A
== END ==
LOC: M RAD 10:57
PROVIDERS: ATTEND Internal Medicine Pulmonary Disease
DX: N20.0 Calculus of kidney (principal)

== ENCOUNTER → 2017-05-11 | Outpatient (REF) | payer OTHER | LOC: M SMT 12:39 | PROVIDERS: ATTEND Nurse Practitioner Women's Health | DX: N20.0 Calculus of kidney (principal) ==

== ENCOUNTER → 2017-11-03 | Outpatient (CLI) | payer OTHER | LOC: M RAD 16:23 | DX: N20.0 Calculus of kidney (principal) | CPT/HCPCS: 74176 ==

== ENCOUNTER 2017-11-30 08:50 | Outpatient (REF) | payer OTHER ==
[2017-12-01 17:58] LABS: TOTAL 25(OH) VITAMIN D 24.2 NG/ML (30.0-100.0); VITAMIN B12 LEVEL 604 PG/ML (247-911)
[2017-12-01 18:01] LABS: ALBUMIN 3.6 GM/DL (3.2-5.2); ALBUMIN/GLOBULIN RATIO 1.29 (1.00-1.93); ALKALINE PHOSPHATASE 82 U/L (45-117); ALT/SGPT 19 U/L (12-78); ANION GAP 8 MEQ/L (8-16); AST/SGOT 17 U/L (7-37); BILIRUBIN,TOTAL 0.3 MG/DL (0.2-1.0); BLOOD UREA NITROGEN 17 MG/DL (7-18); CALCIUM LEVEL 8.4 MG/DL (8.5-10.1); CARBON DIOXIDE LEVEL 26 MEQ/L (21-32); CHLORIDE LEVEL 110 MEQ/L (98-107); CHOLESTEROL LEVEL 182 MG/DL (<200); CREATININE FOR GFR 0.96 MG/DL (0.70-1.30); FREE T4 0.85 NG/DL (0.76-1.46); GLOMERULAR FILTRATION RATE > 60.0 (>56); GLUCOSE, FASTING 122 MG/DL (70-100); HDL CHOLESTEROL 50 MG/DL (>40); LDL CHOLESTEROL 79.6 MG/DL (<100); NON-HDL-C 132 MG/DL; POTASSIUM SERUM 4.2 MEQ/L (3.5-5.1); SODIUM LEVEL 144 MEQ/L (136-145); THYROID STIMULATING HORMONE 0.758 uIU/ML (0.358-3.740); TOTAL PROTEIN 6.4 GM/DL (6.4-8.2); TRIGLYCERIDES LEVEL 262 MG/DL (<150)
[2017-12-01 18:18] LABS: BASO # 0.1 10^3/uL (0.0-0.2); BASO % 0.4 % (0.0-1.0); EOS # 0.6 10^3/uL (0.0-0.50); EOS % 4.4 % (0.0-3.0); HEMATOCRIT 38.9 % (42.0-52.0); HEMOGLOBIN 13.2 g/dl (14.0-18.0); IMMATURE GRANULOCYTE % 0.3 % (0-3.0); LYMPH # 3.2 10^3/uL (1.5-4.5); LYMPH % 25.4 % (24.0-44.0); MEAN CORPUSCULAR HGB CONC 33.9 g/dl (32.0-36.5); MEAN CORPUSCULAR VOLUME 94.4 fl (80.0-96.0); MONO # 0.9 10^3/uL (0.0-0.8); MONO % 7.1 % (0.0-5.0); NEUTROPHILS # 7.8 10^3/uL (1.8-7.7); NEUTROPHILS % 62.4 % (36.0-66.0); PLATELET COUNT, AUTOMATED 244 10^3/uL (150-450); RED BLOOD COUNT 4.12 10^6/uL (4.30-6.10); RED CELL DISTRIBUTION WIDTH 13.2 % (11.5-14.5); WHITE BLOOD COUNT 12.5 10^3/uL (4.0-10.0)
[2017-12-01 18:22] LABS: APPEARANCE, URINE CLEAR (CLEAR); BACTERIA, URINE AUTO NEGATIVE (NEGATIVE); BILIRUBIN, URINE AUTO NEGATIVE (NEGATIVE); BLOOD, URINE BLOOD NEGATIVE (NEGATIVE); CALCIUM OXALATE CRYSTALS SMALL; COLOR, URINE YELLOW (YELLOW); GLUCOSE, URINE (UA) AUTO NEGATIVE (NEGATIVE); KETONE, URINE AUTO NEGATIVE (NEGATIVE); LEUKOCYTE ESTERASE, URINE AUTO NEGATIVE (NEGATIVE); MUCUS, URINE SMALL (NEGATIVE); NITRITE, URINE AUTO NEGATIVE (NEGATIVE); PROTEIN, URINE AUTO NEGATIVE (NEGATIVE); RBC, URINE AUTO 2 /HPF (0-3); SPECIFIC GRAVITY URINE AUTO 1.018 (1.002-1.035); SQUAMOUS EPITHELIAL CELL UR AU 0 /HPF (0-6); UROBILINOGEN, URINE AUTO 0.2 mg/dL (0.0-2.0); WBC, URINE AUTO 2 /HPF (0-3)
== END 2017-12-01 ==
LOC: M SFHCCAPE 08:50
DX: R41.3 Other amnesia (principal)

== ENCOUNTER → 2017-12-13 | Outpatient (CLI) | payer OTHER ==
[2017-12-13 11:04] LABS: INR 0.89; PROTHROMBIN TIME 12.1 SECONDS (12.4-14.5)
== END ==
LOC: M SMT 09:23
DX: N20.0 Calculus of kidney (principal)
CPT/HCPCS: 85610

== ENCOUNTER 2017-12-16 06:45 | Day surgery (SDC) | payer OTHER ==
[2017-12-16] MEDS: LR 1,000 ML IV (07:45)
[2017-12-16] MEDS ORDERED: LIDOCAINE 2% INJ 100 MG/5 ML SDV (FOR ANES.) As Ordered ×2 (07:46→08:37)
[2017-12-16] MEDS ORDERED: PROPOFOL 200 MG/20 ML VIAL As Ordered ×2 (07:46→08:36)
[2017-12-16] MEDS ORDERED: fentaNYL 100 MCG/2 ML INJECTION (J3010) As Ordered (07:47)
[2017-12-16] MEDS ORDERED: MIDAZOLAM INJ 2 MG/2 ML VIAL (J2250) As Ordered (07:47)
[2017-12-16] MEDS ORDERED: ceFAZolin 2 GM/D5W 50 ML IV BAG (J0690 PER 500MG) As Ordered (07:52)
== END 2017-12-16 10:45 | disposition home or self-care (01) ==
LOC: M SDC 06:45
DX: N20.0 Calculus of kidney (principal); G43.909 Migraine, unspecified, not intractable, without status migrainosus; M54.5 Low back pain; M54.2 Cervicalgia; M47.812 Spondylosis without myelopathy or radiculopathy, cervical region; J43.9 Emphysema, unspecified; F32.9 Major depressive disorder, single episode, unspecified; F41.9 Anxiety disorder, unspecified; M51.9 Unspecified thoracic, thoracolumbar and lumbosacral intervertebral disc disorder; Z79.899 Other long term (current) drug therapy; Z72.0 Tobacco use; Z92.3 Personal history of irradiation; Z90.2 Acquired absence of lung [part of]
CPT/HCPCS: 50590

== ENCOUNTER 2018-02-13 18:33 | Emergency (ER) | payer OTHER ==
[2018-02-13 20:21] LABS: BASO % 0.3 % (0.0-1.0); EOS # 0.2 10^3/uL (0.0-0.50); EOS % 1.9 % (0.0-3.0); HEMATOCRIT 42.4 % (42.0-52.0); HEMOGLOBIN 14.7 g/dl (13.5-17.5); IMMATURE GRANULOCYTE % 0.2 % (0-3.0); LYMPH # 2.7 10^3/uL (1.5-4.5); LYMPH % 23.3 % (24.0-44.0); MEAN CORPUSCULAR HEMOGLOBIN 32.2 pg (27.0-33.0); MEAN CORPUSCULAR HGB CONC 34.7 g/dl (32.0-36.5); MEAN CORPUSCULAR VOLUME 92.8 fl (80.0-96.0); MONO # 0.9 10^3/uL (0.0-0.8); MONO % 7.8 % (0.0-5.0); NEUTROPHILS # 7.6 10^3/uL (1.8-7.7); NEUTROPHILS % 66.5 % (36.0-66.0); PLATELET COUNT, AUTOMATED 246 10^3/uL (150-450); RED BLOOD COUNT 4.57 10^6/uL (4.30-6.10); RED CELL DISTRIBUTION WIDTH 12.5 % (11.5-14.5); WHITE BLOOD COUNT 11.5 10^3/uL (4.0-10.0)
[2018-02-13] MEDS: MORPHINE 4 MG/ML 1ML VIAL/SYRINGE (J2270) IV (20:24)
[2018-02-13 20:34] LABS: INR 0.98; PROTHROMBIN TIME 13.1 SECONDS (12.4-14.5)
[2018-02-13 20:35] LABS: PARTIAL THROMBOPLASTIN TIME 35.8 SECONDS (26.8-37.9)
[2018-02-13 20:41] LABS: ANION GAP 4 MEQ/L (8-16); BLOOD UREA NITROGEN 17 MG/DL (7-18); CALCIUM LEVEL 8.8 MG/DL (8.5-10.1); CARBON DIOXIDE LEVEL 31 MEQ/L (21-32); CHLORIDE LEVEL 110 MEQ/L (98-107); CREATININE FOR GFR 1.19 MG/DL (0.70-1.30); GLOMERULAR FILTRATION RATE > 60.0 (>56); GLUCOSE, FASTING 82 MG/DL (70-100); POTASSIUM SERUM 3.8 MEQ/L (3.5-5.1); SODIUM LEVEL 145 MEQ/L (136-145)
[2018-02-13] MEDS: ANUSOL HC CREAM 30GM TOP (21:00)
[2018-02-13 21:04] LABS: AMORPHOUS SEDIMENT SMALL (NEGATIVE); APPEARANCE, URINE HAZY (CLEAR); BACTERIA, URINE AUTO NEGATIVE (NEGATIVE); BILIRUBIN, URINE AUTO NEGATIVE (NEGATIVE); BLOOD, URINE BLOOD NEGATIVE (NEGATIVE); COLOR, URINE YELLOW (YELLOW); GLUCOSE, URINE (UA) AUTO NEGATIVE (NEGATIVE); KETONE, URINE AUTO NEGATIVE (NEGATIVE); LEUKOCYTE ESTERASE, URINE AUTO NEGATIVE (NEGATIVE); MUCUS, URINE SMALL (NEGATIVE); NITRITE, URINE AUTO NEGATIVE (NEGATIVE); PROTEIN, URINE AUTO NEGATIVE (NEGATIVE); RBC, URINE AUTO 3 /HPF (0-3); SPECIFIC GRAVITY URINE AUTO 1.015 (1.002-1.035); SQUAMOUS EPITHELIAL CELL UR AU 0 /HPF (0-6); WBC, URINE AUTO 1 /HPF (0-3)
== END 2018-02-13 22:09 | disposition home or self-care (01) ==
LOC: M ED 18:33
DX: K64.5 Perianal venous thrombosis (principal); K64.8 Other hemorrhoids; R39.11 Hesitancy of micturition; F43.10 Post-traumatic stress disorder, unspecified; Z79.899 Other long term (current) drug therapy; F17.210 Nicotine dependence, cigarettes, uncomplicated
CPT/HCPCS: J2270

== ENCOUNTER → 2018-03-18 | Outpatient (CLI) | payer OTHER ==
[2018-03-18 13:47] LABS: APPEARANCE, URINE CLEAR (CLEAR); BACTERIA, URINE AUTO NEGATIVE (NEGATIVE); BILIRUBIN, URINE AUTO NEGATIVE (NEGATIVE); BLOOD, URINE BLOOD NEGATIVE (NEGATIVE); COLOR, URINE STRAW (YELLOW); GLUCOSE, URINE (UA) AUTO NEGATIVE (NEGATIVE); KETONE, URINE AUTO NEGATIVE (NEGATIVE); LEUKOCYTE ESTERASE, URINE AUTO NEGATIVE (NEGATIVE); NITRITE, URINE AUTO NEGATIVE (NEGATIVE); PROTEIN, URINE AUTO NEGATIVE (NEGATIVE); RBC, URINE AUTO 0 /HPF (0-3); SPECIFIC GRAVITY URINE AUTO 1.004 (1.002-1.035); SQUAMOUS EPITHELIAL CELL UR AU 0 /HPF (0-6); UROBILINOGEN, URINE AUTO 0.2 mg/dL (0.0-2.0); WBC, URINE AUTO 0 /HPF (0-3)
== END ==
LOC: M SMT 08:31
DX: N20.0 Calculus of kidney (principal)
CPT/HCPCS: 81001

== ENCOUNTER → 2018-03-30 | Outpatient (CLI) | payer OTHER | LOC: M RAD 17:08 | DX: N28.1 Cyst of kidney, acquired (principal) | CPT/HCPCS: 74176 ==

== ENCOUNTER → 2021-03-11 | Outpatient (CLI) | payer OTHER ==
[~2021-03-11] MED LIST: ACET650T61 PO; ANUS2.5C2 PR; ESCI10TA16 PO; ETOD-173 PO; FLOM0.4C39 PO; IBUP80TA PO; XANA0.25 PO
--- NOTE | 2021-03-11 12:47 | REP ---
INDICATION: DYSPNEA, UNSPECIFIED. COMPARISON: December 03, 2016. TECHNIQUE: Two views.. FINDINGS: There is right apical pleuroparenchymal fibrosis and a suture line is visible in the right apex unchanged post thoracotomy. No infiltrate is seen. The lung carmen are well inflated and otherwise clear. The pleural angles are sharp. Heart is not enlarged. Pulmonary vasculature is not increased. No significant bony abnormality is seen. There are 2 old healed rib fractures on the right. IMPRESSION: No active disease. Postthoracotomy changes right lung apex.. <Electronically signed by Buzz Turcios > 03/11/21 [id number]
== END ==
LOC: M RAD 12:26
PROVIDERS: ATTEND Physician Assistant
DX: R06.09 Other forms of dyspnea (principal)

== ENCOUNTER → 2022-01-20 | Outpatient (CLI) | payer OTHER | LOC: M RAD 15:58 | PROVIDERS: ATTEND Physician Assistant | DX: Z87.891 Personal history of nicotine dependence (principal) ==

== ENCOUNTER → 2023-05-18 | Outpatient (CLI) | payer OTHER | LOC: M RAD 13:17 | PROVIDERS: ATTEND Physician Assistant | DX: Z87.891 Personal history of nicotine dependence (principal) ==

== ENCOUNTER 2023-07-20 09:08 | Day surgery (SDC) | payer OTHER ==
[~2023-07-20] VITALS: Ht 170.2 cm; Wt 50.8 kg
[~2023-07-20 09:08] MED LIST changes: +ALBU8.5H; +FAMO40TA3 PO; +MAGN64TASA PO; +NS 1,000 ML IV ONE; +STIO1AER; +fentaNYL 100 MCG/2 ML INJECTION As Ordered ONE; +propofoL 200 MG/20 ML VIAL As Ordered ONE
[2023-07-20 11:29] VITALS: TEMP 96.8
[2023-07-20 11:50] VITALS: BP 112/78; O2SAT 98
== END 2023-07-20 11:50 | disposition home or self-care (01) ==
LOC: M OPP 09:08
PROVIDERS: ATTEND Internal Medicine Gastroenterology
DX: K57.32 Diverticulitis of large intestine without perforation or abscess without bleeding (principal); K57.30 Diverticulosis of large intestine without perforation or abscess without bleeding; K64.4 Residual hemorrhoidal skin tags; K64.8 Other hemorrhoids; K63.5 Polyp of colon; K29.70 Gastritis, unspecified, without bleeding; K31.819 Angiodysplasia of stomach and duodenum without bleeding; K31.89 Other diseases of stomach and duodenum; K30 Functional dyspepsia; Z79.51 Long term (current) use of inhaled steroids; F17.200 Nicotine dependence, unspecified, uncomplicated
CPT/HCPCS: 43239; 45385; 88305; J3010

== ENCOUNTER → 2024-06-07 | Outpatient (CLI) | payer OTHER ==
[~2024-06-07] MED LIST changes: -ETOD-173 PO; +ETOD-234 PO; -NS 1,000 ML IV ONE; -fentaNYL 100 MCG/2 ML INJECTION As Ordered ONE; -propofoL 200 MG/20 ML VIAL As Ordered ONE
== END ==
LOC: M RAD 14:34
PROVIDERS: ATTEND Physician Assistant
DX: F17.218 Nicotine dependence, cigarettes, with other nicotine-induced disorders (principal)

== ENCOUNTER 2024-09-18 11:25 | Emergency (ER) | payer OTHER ==
[~2024-09-18] VITALS: Ht 170.2 cm; Wt 48.5 kg
[2024-09-18 11:29] VITALS: BP 113/76; TEMP 97; O2SAT 96
== END 2024-09-18 12:01 | disposition left against medical advice (07) ==
LOC: M ED 11:25
DX: Z53.21 Procedure and treatment not carried out due to patient leaving prior to being seen by health care provider (principal)

== ENCOUNTER 2025-04-02 05:20 | Inpatient (IN) | payer OTHER ==
[2025-04-02] VITALS (7 sets, daily range): BP systolic 95–100; BP diastolic 57–61; TEMP 99.9–104.3; O2SAT 83–96
[~2025-04-02] VITALS: Ht 170.2 cm; Wt 66.5 kg
[~2025-04-02 05:20] MED LIST changes: -FLOM0.4C39 PO; +TAMS-18 PO
[2025-04-02 06:11] LABS: BASO # 0.0 10^3/uL (0.0-0.2); BASO % 0.2 % (0.0-1.0); EOS # 0.0 10^3/uL (0.0-0.5); EOS % 0.0 % (0.0-3.0); LYMPH # 1.7 10^3/uL (1.5-5.0); LYMPH % 19.1 % (24.0-44.0); MONO # 0.7 10^3/uL (0.0-0.8); MONO % 8.0 % (2.0-8.0); NEUTROPHILS # 6.5 10^3/uL (1.5-8.5); NEUTROPHILS % 72.4 % (36.0-66.0)
[2025-04-02 06:13] LABS: PLATELET COUNT, AUTOMATED 52 10^3/uL (150-450)
[2025-04-02 06:31] LABS: APPEARANCE, URINE HAZY (CLEAR); BACTERIA, URINE AUTO 1+ (NEGATIVE); BILIRUBIN, URINE AUTO NEGATIVE (NEGATIVE); BLOOD, URINE BLOOD 1+ (NEGATIVE); GLUCOSE, URINE (UA) AUTO NEGATIVE (NEGATIVE); KETONE, URINE AUTO NEGATIVE (NEGATIVE); LEUKOCYTE ESTERASE, URINE AUTO NEGATIVE (NEGATIVE); MUCUS, URINE SMALL (NEGATIVE); NITRITE, URINE AUTO NEGATIVE (NEGATIVE); PROTEIN, URINE AUTO 2+ mg/dL (NEGATIVE); RBC, URINE AUTO 1 /HPF (0-3); SPECIFIC GRAVITY URINE AUTO 1.020 (1.002-1.035); SQUAMOUS EPITHELIAL CELL UR AU 0 /HPF (0-6); UROBILINOGEN, URINE AUTO 0.2 mg/dL (0.0-2.0); WBC, URINE AUTO 2 /HPF (0-3)
[2025-04-02 06:34] LABS: CK-MB VALUE MASS < 1.0 NG/ML (<3.6)
[2025-04-02 06:36] LABS: ALT/SGPT 33 U/L (7.0-40); AST/SGOT 48 U/L (<34); CALCIUM LEVEL 8.1 MG/DL (8.3-10.6); CARBON DIOXIDE LEVEL 23 MMOL/L (20-31); CHLORIDE LEVEL 100 MMOL/L (98-107); CREATININE FOR GFR 1.22 MG/DL (0.70-1.30); GLOMERULAR FILTRATION RATE 67.0 (>49); POTASSIUM SERUM 4.0 MMOL/L (3.5-5.1); SODIUM LEVEL 136 MMOL/L (136-145)
[2025-04-02 06:46] LABS: CPK CREATINE PHOSPHOKINASE 62 U/L (46-171)
[2025-04-02] MEDS: ONDANSETRON 4MG 2ML VIAL IV ONE (06:51)
[2025-04-02] MEDS: NS (Normal Saline) 0.9% 1,000 ML IV ONE (06:51)
[2025-04-02] MEDS: ACETAMINOPHEN *IV* 500 MG in IV 1 EA IV ONE (06:53)
[2025-04-02] MEDS ORDERED: ISOVUE-370 76% 100 ML VIAL As Ordered ONE (07:08)
[2025-04-02 07:51] LABS: CK-MB VALUE MASS < 1.0 NG/ML (<3.6)
[2025-04-02 07:52] LABS: CPK CREATINE PHOSPHOKINASE 42 U/L (46-171)
[2025-04-02] MEDS: NICOTINE 14 MG/24 HR TRANSDERMAL TD SCH (09:00)
[2025-04-02] MEDS ORDERED: BUDE10.7 INH (09:41)
[2025-04-02] MEDS ORDERED: ALBU8.5H INH (09:41)
[2025-04-02] MEDS ORDERED: HOME MED LIST COMPLETE! XX SCH (09:45)
[2025-04-02] MEDS: LIDOCAINE 2% 5 ML JELLY UROJET TOP ONE (10:15)
[2025-04-02 10:58] LABS: ERYTHROCYTE SEDIMENTATION RATE 32 mm/hr (0-20)
[2025-04-02 11:01] LABS: C REACTIVE PROTEIN QUANTITATIV 8.08 MG/DL (<1.0)
[2025-04-02] MEDS: guaiFENesin ER TABLET 600 MG TAB PO ONE (11:35)
[2025-04-02] MEDS: MIDODRINE 5 MG TAB PO ONE ×2 (11:36→18:04)
[2025-04-02] MEDS: LR 1,000 ML IV SCH ×2 (11:36→21:33)
[2025-04-02] MEDS: TIOTROPIUM BROM 2.5MCG/ACTUATION 4GM INH INH SCH (11:50)
[2025-04-02] MEDS: IPRATROPIUM 0.5 MG/ALBUTEROL 2.5 MG INH SOL UD 3 ML NEB ONE (11:50)
[2025-04-02] MEDS: PIPERACILLIN/TAZOBACTAM SOD 4.5 GM in DEXTROSE 5% (D5W) ADV/MINI-BAG 50 ML IV SCH (12:57)
[2025-04-02 15:03] LABS: AMPHETAMINES LEVEL URINE NEGATIVE (NEGATIVE); BARBITURATES URINE NEGATIVE (NEGATIVE); BENZODIAZEPINES URINE NEGATIVE (NEGATIVE); COCAINE METABOLITE URINE NEGATIVE (NEGATIVE); METHADONE URINE NEGATIVE (NEGATIVE); OPIATES URINE NEGATIVE (NEGATIVE)
[2025-04-02 15:04] LABS: PHENCYCLIDINE URINE NEGATIVE (NEGATIVE)
[2025-04-02 15:06] LABS: CANNABINOIDS URINE POSITIVE (NEGATIVE)
[2025-04-02] MEDS ORDERED: VANCOMYCIN HCL 1,000 MG in IV FLUID PLACE HOLDER 1 EA IV SCH (16:15)
[2025-04-02] MEDS: LR 1,000 ML IV ONE (16:25)
[2025-04-02] MEDS: KETOROLAC 30 MG/ML 1 ML VIAL IV ONE (16:25)
[2025-04-02 17:27] LABS: CK-MB VALUE MASS 1.2 NG/ML (<3.6)
[2025-04-02 17:30] LABS: CPK CREATINE PHOSPHOKINASE 50.0 U/L (46-171); MB/CK RELATIVE INDEX 2.4 (< OR =4)
[2025-04-02] MEDS: NS (Normal Saline) 0.9% 1,000 ML IV SCH (18:38)
[2025-04-02] MEDS: VANCOMYCIN HCL 1,000 MG, VIAL MATE ADAPTER 1 EACH in NS 250 ML IV ONE (18:49)
[2025-04-02] MEDS: SYMBICORT 160/4.5MCG INHALER 6GM INH SCH (20:00)
[2025-04-02] MEDS: IPRATROPIUM 0.5 MG/ALBUTEROL 2.5 MG INH SOL UD 3 ML NEB PRN (20:05)
[2025-04-02] MEDS: guaiFENesin ER TABLET 600 MG TAB PO SCH (20:34)
[2025-04-02] MEDS: ACETAMINOPHEN 500 MG TAB PO PRN (20:35)
[2025-04-02] MEDS ORDERED: ALBUTEROL SULFATE 2.5 MG/0.5 ML INH CONCENTRATE NEB SOLN INH PRN (20:35)
[2025-04-02] MEDS: IPRATROPIUM 0.5 MG/ALBUTEROL 2.5 MG INH SOL UD 3 ML NEB SCH (23:45)
[2025-04-03] VITALS (10 sets, daily range): BP systolic 88–100; BP diastolic 52–65; TEMP 97–99.2; O2SAT 92–99
[2025-04-03 06:07] LABS: PLATELET COUNT, AUTOMATED 20 10^3/uL (150-450)
[2025-04-03 06:20] LABS: CALCIUM LEVEL 7.3 MG/DL (8.3-10.6); CARBON DIOXIDE LEVEL 22 MMOL/L (20-31); CHLORIDE LEVEL 104 MMOL/L (98-107); CREATININE FOR GFR 0.94 MG/DL (0.70-1.30); GLOMERULAR FILTRATION RATE > 90.0 (>49); POTASSIUM SERUM 4.0 MMOL/L (3.5-5.1); SODIUM LEVEL 139 MMOL/L (136-145)
[2025-04-03 06:52] LABS: ATYPICAL LYMPH 1 % (0-5); LYMPHOCYTES 14 % (16-44); MONOCYTES 3 % (0-5); NEUTROPHILS 82 % (28-66)
[2025-04-03 06:53] LABS: PLATELET ESTIMATE MARKED DECREASE (NORMAL)
[2025-04-03 07:53] LABS: VANCOMYCIN RANDOM 6.3 UG/ML
[2025-04-03] MEDS: MUPIROCIN 2% OINT 22 GM TUBE TOP SCH ×2 (09:00→12:43)
[2025-04-03] MEDS: VANCOMYCIN HCL 750 MG, VIAL MATE ADAPTER 1 EACH in NS 250 ML IV SCH (09:34)
[2025-04-03] MEDS: DOXYCYCLINE HYCLATE 100 MG TABLET PO SCH (10:05)
[2025-04-03] MEDS: CALCIUM GLUCONATE 1,000 MG in DEXTROSE 5% (D5W) MINI-BAG PLU 100 ML IV ONE (10:05)
[2025-04-03 10:41] LABS: PLATELET COUNT, AUTOMATED 21 10^3/uL (150-450)
[2025-04-03] MEDS: LR 1,000 ML IV ONE ×2 (11:00→12:43)
[2025-04-03] MEDS: HYDROCORTISONE 100 MG/2 ML VIAL IV SCH (11:00)
[2025-04-03 11:05] LABS: D-DIMER QUANT 8.87 ug/mL (<0.5); INR 1.06
[2025-04-03] MEDS: NS (Normal Saline) 0.9% 1,000 ML IV SCH (18:22)
[2025-04-04] VITALS (17 sets, daily range): BP systolic 96–126; BP diastolic 52–64; TEMP 97.1–98.3; O2SAT 82–96
[2025-04-04 06:09] LABS: BASO # 0.0 10^3/uL (0.0-0.2); BASO % 0.1 % (0.0-1.0); EOS # 0.0 10^3/uL (0.0-0.5); EOS % 0.0 % (0.0-3.0); LYMPH # 4.4 10^3/uL (1.5-5.0); LYMPH % 27.0 % (24.0-44.0); MONO # 0.8 10^3/uL (0.0-0.8); MONO % 4.7 % (2.0-8.0); NEUTROPHILS # 11.0 10^3/uL (1.5-8.5); NEUTROPHILS % 67.6 % (36.0-66.0)
[2025-04-04 06:23] LABS: PLATELET COUNT, AUTOMATED 30 10^3/uL (150-450)
[2025-04-04 06:30] LABS: CALCIUM LEVEL 7.7 MG/DL (8.3-10.6); CARBON DIOXIDE LEVEL 26 MMOL/L (20-31); CHLORIDE LEVEL 107 MMOL/L (98-107); CREATININE FOR GFR 0.85 MG/DL (0.70-1.30); GLOMERULAR FILTRATION RATE > 90.0 (>49); POTASSIUM SERUM 3.9 MMOL/L (3.5-5.1); SODIUM LEVEL 142 MMOL/L (136-145)
[2025-04-04 08:39] LABS: C REACTIVE PROTEIN QUANTITATIV 9.12 MG/DL (<1.0)
[2025-04-04] MEDS: MIDODRINE 5 MG TAB PO SCH (08:47)
[2025-04-04 09:05] LABS: ERYTHROCYTE SEDIMENTATION RATE 9 mm/hr (0-20)
[2025-04-04] MEDS: LR 1,000 ML IV ONE (09:15)
[2025-04-04] MEDS ORDERED: NS 0.45% 1,000 ML IV ONE (11:25)
[2025-04-04] MEDS: NS 0.45% 1,000 ML IV SCH (13:05)
[2025-04-04] MEDS: SODIUM CHLORIDE 0.9% 1000 ML XX SCH (13:35)
[2025-04-04] MEDS ORDERED: HEPARIN 1,000 UNITS/ML 10 ML VIAL (FOR RADIOLOGY & DIALYSIS ONLY) IV PRN (13:35)
[2025-04-04 13:43] LABS: FREE T4 0.76 NG/DL (0.89-1.76)
[2025-04-04] MEDS: NS (Normal Saline) 0.9% 1,000 ML IV SCH ×2 (14:18→15:00)
[2025-04-04] MEDS: MIDAZOLAM INJ 2 MG/2 ML VIAL IV PRN (14:18)
[2025-04-04] MEDS: LIDOCAINE 1% MDV 20 ML VIAL SC SCH (14:48)
[2025-04-04] MEDS: ISOVUE-300 61% 100 ML VIAL IV SCH (14:49)
[2025-04-04] MEDS ORDERED: ONDANSETRON 4MG 2ML VIAL IV PRN (15:00)
[2025-04-04] MEDS ORDERED: PERCOCET 5MG/325MG TAB PO PRN (15:00)
[2025-04-05] VITALS (20 sets, daily range): BP systolic 96–123; BP diastolic 44–71; TEMP 97.5–98.4; O2SAT 89–100
[2025-04-05 06:40] LABS: BASO # 0.0 10^3/uL (0.0-0.2); BASO % 0.2 % (0.0-1.0); EOS # 0.0 10^3/uL (0.0-0.5); EOS % 0.0 % (0.0-3.0); LYMPH # 5.6 10^3/uL (1.5-5.0); LYMPH % 29.2 % (24.0-44.0); MONO # 1.6 10^3/uL (0.0-0.8); MONO % 8.2 % (2.0-8.0); NEUTROPHILS # 11.7 10^3/uL (1.5-8.5); NEUTROPHILS % 61.2 % (36.0-66.0)
[2025-04-05 06:44] LABS: PLATELET COUNT, AUTOMATED 58 10^3/uL (150-450)
[2025-04-05 07:12] LABS: CALCIUM LEVEL 7.6 MG/DL (8.3-10.6); CARBON DIOXIDE LEVEL 26 MMOL/L (20-31); CHLORIDE LEVEL 106 MMOL/L (98-107); CREATININE FOR GFR 0.83 MG/DL (0.70-1.30); GLOMERULAR FILTRATION RATE > 90.0 (>49); POTASSIUM SERUM 3.5 MMOL/L (3.5-5.1); SODIUM LEVEL 143 MMOL/L (136-145)
[2025-04-05] MEDS: HYDROCORTISONE 100 MG/2 ML VIAL IV SCH (18:20)
[2025-04-06] VITALS (22 sets, daily range): BP systolic 104–132; BP diastolic 60–71; TEMP 96.7–98.1; O2SAT 89–98
[2025-04-06 05:48] LABS: PLATELET COUNT, AUTOMATED 92 10^3/uL (150-450)
[2025-04-06 06:01] LABS: CALCIUM LEVEL 7.8 MG/DL (8.3-10.6); CARBON DIOXIDE LEVEL 30 MMOL/L (20-31); CHLORIDE LEVEL 107 MMOL/L (98-107); CREATININE FOR GFR 0.88 MG/DL (0.70-1.30); GLOMERULAR FILTRATION RATE > 90.0 (>49); POTASSIUM SERUM 3.2 MMOL/L (3.5-5.1); SODIUM LEVEL 145 MMOL/L (136-145)
[2025-04-06 06:40] LABS: ATYPICAL LYMPH 9 % (0-5); LYMPHOCYTES 32 % (16-44); MONOCYTES 12 % (0-5); NEUTROPHILS 47 % (28-66)
[2025-04-06 06:41] LABS: PLATELET ESTIMATE DECREASED (NORMAL)
[2025-04-06 08:38] LABS: BORRELIA SPECIES DNA NOT DETECTED (NOT DETECT)
[2025-04-06] MEDS: metOLazone 2.5 MG TAB PO ONE (11:43)
[2025-04-06] MEDS: FUROSEMIDE 20 MG/2 ML VIAL IV ONE (13:11)
[2025-04-06] MEDS: AUGMENTIN 875 MG TAB PO SCH (13:22)
[2025-04-06] MEDS: FUROSEMIDE 40 MG/4 ML VIAL IV ONE (15:30)
[2025-04-06] MEDS: POTASSIUM CHLORIDE 10MEQ SR TABLET PO ONE (15:30)
[2025-04-06 18:42] LABS: IONIZED CALCIUM 4.2 MG/DL (4.5-5.3)
[2025-04-06 19:11] LABS: CALCIUM LEVEL 7.9 MG/DL (8.3-10.6); CARBON DIOXIDE LEVEL 33 MMOL/L (20-31); CHLORIDE LEVEL 102 MMOL/L (98-107); CREATININE FOR GFR 0.85 MG/DL (0.70-1.30); GLOMERULAR FILTRATION RATE > 90.0 (>49); MAGNESIUM LEVEL 1.5 MG/DL (1.8-2.4); POTASSIUM SERUM 3.1 MMOL/L (3.5-5.1); SODIUM LEVEL 146 MMOL/L (136-145)
[2025-04-07 03:43] VITALS: BP 102/67; TEMP 97.7; O2SAT 95
[2025-04-07 04:23] LABS: HEP INDUCED PLT AB PATIENT OD 0.100 OD UNITS (<=0.300); HEPARIN INDUCED PLATELET ABY Negative (Negative)
[2025-04-07 06:06] LABS: BASO # 0.0 10^3/uL (0.0-0.2); BASO % 0.2 % (0.0-1.0); EOS # 0.1 10^3/uL (0.0-0.5); EOS % 0.4 % (0.0-3.0); LYMPH # 8.2 10^3/uL (1.5-5.0); LYMPH % 50.9 % (24.0-44.0); MONO # 1.1 10^3/uL (0.0-0.8); MONO % 6.8 % (2.0-8.0); NEUTROPHILS # 6.5 10^3/uL (1.5-8.5); NEUTROPHILS % 40.1 % (36.0-66.0); PLATELET COUNT, AUTOMATED 144 10^3/uL (150-450)
[2025-04-07 06:34] LABS: CALCIUM LEVEL 8.2 MG/DL (8.3-10.6); CARBON DIOXIDE LEVEL 35 MMOL/L (20-31); CHLORIDE LEVEL 101 MMOL/L (98-107); CREATININE FOR GFR 0.90 MG/DL (0.70-1.30); GLOMERULAR FILTRATION RATE > 90.0 (>49); POTASSIUM SERUM 3.5 MMOL/L (3.5-5.1); SODIUM LEVEL 144 MMOL/L (136-145)
[2025-04-07] MEDS ORDERED: AMOX875T2 PO (08:53)
[2025-04-07] MEDS ORDERED: DOXY100T PO (08:53)
== END 2025-04-07 10:00 | disposition home or self-care (01) | DRG 720 ==
LOC: EDBD 05:20 → M ED 05:20 → EEVIPCON 10:21 → M ED INP 10:21 → M MSPAV 15:07 → M PCU 04-03 13:36 → M MSPAV 04-06 16:23
PROVIDERS: ADMIT General Practice; ATTEND Family Medicine
PROC: B415YZZ Fluoroscopy of Inferior Mesenteric Artery using Other Contrast (ICD-10-PCS; 2025-04-04)
PROC: B414YZZ Fluoroscopy of Superior Mesenteric Artery using Other Contrast (ICD-10-PCS; 2025-04-04)
PROC: B41BYZZ Fluoroscopy of Other Intra-Abdominal Arteries using Other Contrast (ICD-10-PCS; 2025-04-04)
PROC: B246ZZZ Ultrasonography of Right and Left Heart (ICD-10-PCS; principal; 2025-04-04 13:00)
DX: A41.9 Sepsis, unspecified organism (principal); E43 Unspecified severe protein-calorie malnutrition; E87.20 Acidosis, unspecified; I95.9 Hypotension, unspecified; D69.6 Thrombocytopenia, unspecified; J43.9 Emphysema, unspecified; E83.51 Hypocalcemia; E86.0 Dehydration; D64.9 Anemia, unspecified; G43.909 Migraine, unspecified, not intractable, without status migrainosus; M54.2 Cervicalgia; M54.50 Low back pain, unspecified; F41.9 Anxiety disorder, unspecified; F32.A Depression, unspecified; F17.210 Nicotine dependence, cigarettes, uncomplicated; R29.6 Repeated falls; J47.9 Bronchiectasis, uncomplicated; J44.9 Chronic obstructive pulmonary disease, unspecified; R79.89 Other specified abnormal findings of blood chemistry; R50.9 Fever, unspecified; K31.819 Angiodysplasia of stomach and duodenum without bleeding; K52.9 Noninfective gastroenteritis and colitis, unspecified; M47.812 Spondylosis without myelopathy or radiculopathy, cervical region; M47.816 Spondylosis without myelopathy or radiculopathy, lumbar region; Z79.51 Long term (current) use of inhaled steroids

== ENCOUNTER → 2025-05-23 | Outpatient (POV) | payer OTHER ==
[~2025-05-23] VITALS: Ht 170.2 cm; Wt 50.0 kg
[~2025-05-23] MED LIST changes: +ALBU8.5H INH; +AMOX875T2 PO; +BUDE10.7 INH; +DOXY100T PO
[2025-05-23 14:40] VITALS: BP 130/82; O2SAT 99
== END ==
LOC: M IRPOV 14:23
PROVIDERS: ATTEND Radiology Diagnostic Radiology
DX: K64.1 Second degree hemorrhoids (principal)